=== PATIENT | male | born 1985 | race Caucasian/White ===

== ENCOUNTER 2018-09-26 18:14 | Emergency (ER) | payer OTHER, MEDICAID, SELFPAY ==
[2018-09-26 18:24] VITALS: BP 178/90; PULSE 105; RESP 16; TEMP 36.6; O2SAT 98
--- NOTE | 2018-09-26 18:24 | DI.RAD.S_ITS ---
PROCEDURE: XR CHEST 1V INDICATIONS: chest pain TECHNIQUE: One view of the chest was acquired. COMPARISON: None. FINDINGS: Surgical changes and devices: None. Lungs and pleura: There are low lung volumes. Lungs are clear. No pleural effusions or pneumothorax. Mediastinum: Mediastinal contours appear normal. Heart size is normal. Bones and chest wall: No suspicious bony lesions. There is a small round density projecting over the upper abdomen likely representing an external lead. IMPRESSION: 1. No acute cardiopulmonary disease. Dictated by: Aung Keith M.D. on 09/26/2018 at 18:59 Approved by: Aung Keith M.D. on 09/26/2018 at 19:00
--- NOTE | 2018-09-26 18:30 | ED.CHESTPAIN ---
HPI - Chest Pain General Chief Complaint: Chest Pain Stated Complaint: SOB, Chest Pressure/Tighness Time Seen by Provider: 09/26/18 18:30 Source: patient Mode of arrival: ambulatory Limitations: no limitations History of Present Illness HPI narrative: The patient was at rest at home earlier today. He developed an uncomfortable sensation in his substernal and left upper chest. There is no radiation of pain. He has mild dyspnea. He has no cough. He has no history of coronary disease, arrhythmia, or lung disease. He is a nonsmoker. He has no asthma history. He has not been ill recently. He was previously on medications for hypertension, but off those meds now. He has a history of diabetes. There is no family history of early heart disease. He denies associated headache, back pain, abdominal pain or nausea/vomiting. Related Data Home Medications Medication Instructions Recorded Confirmed paroxetine HCl [Paxil] mg PO #0 01/16/17 cyclobenzaprine 09/26/18 gabapentin 09/26/18 insulin glargine [Lantus Solostar 09/26/18 U-100 Insulin] liraglutide [Victoza 3-Abundio] 09/26/18 metformin 09/26/18 mupirocin 09/26/18 naproxen 09/26/18 pen needle, diabetic [BD 09/26/18 09/26/18 Ultra-Fine Micro Pen Needle] sertraline 09/26/18 Previous Rx's Medication Instructions Recorded oxycodone-acetaminophen [Percocet] 1 tab PO Q4HP PRN #10 tab 02/16/16 ranitidine HCl [Zantac] 150 mg PO BID #60 tab 09/26/18 Allergies Allergy/AdvReac Type Severity Reaction Status Date / Time No Known Drug Allergies Allergy Verified 09/26/18 18:24 Review of Systems Review of Systems ROS Unobtainable: All systems reviewed & are unremarkable except as noted in HPI and below Constitutional Denies chills, Denies fever(s), Denies lethargy and Denies weakness Eyes Comments: No eye complaints ENT Ears, Nose, Mouth, and Throat: Denies dizziness Comments: No ENT complaints. Cardiovascular Reports as per HPI, Denies chest pain, Reports chest pain at rest, Denies diaphoresis, Denies syncope, Denies rapid heart rate, Denies pedal edema and Reports dyspnea Respiratory Reports as per HPI, Denies cough, Reports dyspnea and Denies wheezing Gastrointestinal Gastrointestinal: Denies abdominal pain, Denies diarrhea, Denies nausea and Denies vomiting Musculoskeletal Denies back pain Integumentary/Breasts Denies erythema, Denies rash and Denies wounds Neurologic Denies confusion, Denies dizziness, Denies syncope and Denies weakness Psychiatric Denies anxiety, Denies confusion and Denies depression Allergic/Immunologic Denies wheezing [facility] Medical History (Updated 09/26/18 @ 20:06 by Rayo Proctor MD) History of diabetes mellitus (Acute) History of hypertension (Acute) Surgical History (Updated 09/26/18 @ 19:11 by Rayo Proctor MD) No pertinent past surgical history (Acute) Social History Smoking Status: Unknown if ever smoked Social History Smoking Status: Unknown if ever smoked Exam Initial Vital Signs Initial Vital Signs: Vital Signs Temperature 97.9 F 09/26/18 18:24 Pulse Rate 105 H 09/26/18 18:24 Respiratory Rate 16 09/26/18 18:24 Blood Pressure 178/90 H 09/26/18 18:24 Pulse Oximetry 98 09/26/18 18:24 Const General: cooperative and well developed Nutritional Appearance: well nourished Orientation: alert, awake, oriented x3 and not confused [facility] Head: normocephalic and atraumatic Face and sinus: face symmetric Mouth: moist mucous membranes Teeth and gingiva: dentition normal Throat: tonsils normal and uvula midline Eyes General: appearance normal, both eyes and all related structures Eyelids: eyelids normal Conjunctivae: conjunctivae normal Sclera: sclerae normal Pupils: PERRL EOM: EOM intact bilaterally Neck Neck: full ROM, No lymphadenopathy, No tender and No JVD Chest Chest: normal inspection of the chest, No crepitus and No tenderness Resp Effort & Inspection: normal respiratory effort, able to speak in complete sentences, no respiratory distress and no use of accessory muscles Auscultation: clear to auscultation bilaterally, no rales, no rhonchi and no wheezes Cardio Rate: regular rate Rhythm: regular rhythm Heart Sounds: S1 normal, S2 normal, no click, no gallops, no murmurs and no rubs Pulses: normal peripheral pulses GI Inspection: non-distended Palpation: soft, no hepatosplenomegaly, No pulsatile mass and tender (Epigastric tenderness with palpation.) Auscultation: normal bowel sounds Back/Spine/Pelvis Back: normal to inspection, No back tenderness and No CVA tenderness Skin General: no rashes or lesions noted and No jaundice Neuro General: alert, oriented x3, gait normal and no focal motor deficits Speech: speech normal Extrem General: full ROM, no pedal edema and no calf tenderness Psych Appearance: grossly normal and well kempt Course Course Narrative: Epigastric pain with his complaints of sternal chest discomfort are likely consistent with acid reflux. He was given Protonix here in the IV and discharged on Zantac. He is advised to follow up with his doctor to recheck after 1-2 weeks of meds. Orders Ordered: Discontinued Medications Al Hydrox/Mg Hydrox/Simethicone 20 ml/ Lidocaine HCl 15 ml 0 ml PO NOW ONE Stop: 09/26/18 18:38 Last Admin: 09/26/18 19:23 Dose: 35 ml Pantoprazole Sodium (Protonix) 40 mg IV NOW ONE Stop: 09/26/18 18:38 Last Admin: 09/26/18 19:23 Dose: 40 mg Vital Signs - 8 hr 09/26/18 18:24 09/26/18 19:12 Temperature 97.9 F Pulse Rate 105 H 103 H Respiratory Rate 16 22 Blood Pressure 178/90 H Blood Pressure [Right Arm] 139/32 L Pulse Oximetry 98 99 MDM - Chest Pain Lab Data Result diagrams: 09/26/18 18:36 09/26/18 18:36 Lab Results 09/26/18 09/26/18 09/26/18 Range/Units 18:36 18:36 18:36 WBC 9.3 (4.5-11.0) X10^3/uL RBC 5.42 (4.5-5.9) X10^6/uL Hgb 15.9 (13.5-17.5) g/dL Hct 46.3 (41-53) % MCV 85.5 (80-100) fL MCH 29.3 (26-34) PG MCHC 34.3 (30-36) % RDW 13.3 (11.6-14.8) % Plt Count 280 (150-400) X10^3/uL Neut % (Auto) 51.3 (50-75) % Lymph % (Auto) 34.3 (25-40) % Crowley % (Auto) 8.3 (3-14) % Eos % (Auto) 5.0 H (2-4) % Baso % (Auto) 1.1 (0-2) % Neut # (Auto) 4800 (7219-2092) /uL Lymph # (Auto) 3200 (5022-1958) /uL Crowley # (Auto) 800 (0-900) /uL Eos # (Auto) 500 H (0-450) /uL Baso # (Auto) 100 (0-100) /uL PT 10.1 (10.1-12.7) SECONDS INR 0.9 (0.9-1.3) APTT 32 (26.4-36.2) SECONDS Sodium 140 (137-145) mmol/L Potassium 3.9 (3.4-5.1) mmol/L Chloride 101 (98-107) mmol/L Carbon Dioxide 27 (22-32) mmol/L BUN 13 (9-20) mg/dL Creatinine 0.70 (0.66-1.25) mg/dL Estimated GFR > 60.0 (>60) mL/min BUN/Creatinine Ratio 18.6 (6-22) Glucose 170 H (70-100) mg/dL Calcium 9.2 (8.4-10.2) mg/dL Total Bilirubin 0.6 (0.2-1.3) mg/dL AST 30 (17-59) IU/L ALT 56 (21-72) IU/L Alkaline Phosphatase 57 (38-126) U/L Total Creatine Kinase 272 H (55-170) U/L CK-MB (CK-2) 3.14 H (<2.37) ng/mL CK-MB (CK-2) Rel Index 1.2 L (1.5-5.0) % Troponin I < 0.012 (0.01-0.034) ng/mL Total Protein 7.7 (6.3-8.2) g/dL Albumin 4.4 (3.5-5.0) g/dL Globulin 3.3 (1.7-4.1) g/dL Albumin/Globulin Ratio 1.3 (1.0-2.8) Lipase 248 (23-300) U/L Imaging Data Chest x-ray: Radiologist's impression: [address] [address] XRay Report Signed Patient: Juan Rashid Jr JMR#: [id number] : 1985Acct:[id number] Age/Sex: 33 / MDate of Service: 09/26/18 Loc: ED Accession Number: [id number] Procedure: XR chest 1V Ordering Provider: Rayo Proctor MD PROCEDURE: XR CHEST 1V INDICATIONS: chest pain TECHNIQUE: One view of the chest was acquired. COMPARISON: None. FINDINGS: Surgical changes and devices: None. Lungs and pleura: There are low lung volumes. Lungs are clear. No pleural effusions or pneumothorax. Mediastinum: Mediastinal contours appear normal. Heart size is normal. Bones and chest wall: No suspicious bony lesions. There is a small round density projecting over the upper abdomen likely representing an external lead. IMPRESSION: 1. No acute cardiopulmonary disease. Dictated by: Aung Keith M.D. on 09/26/2018 at 18:59 Approved by: Aung Keith M.D. on 09/26/2018 at 19:00 ECG Data Attestation: I personally reviewed and interpreted this ECG as follows: (Normal sinus rhythm rate 98 beats per minute. Normal intervals. No ectopy. No acute ST T wave changes. Normal study.) Discharge Plan Departure Patient Disposition: Home Clinical Impression: Abdominal pain, acute, epigastric Discharge Date/Time: 09/26/18 20:27 Interventions: ED Discharge Assessment Last Done: 09/26/18 20:27 Instructions: DI for Abdominal Pain-Adult Activity Restrictions/Additional Instructions: Zantac 2 times daily as prescribed. Continue her current medications as prescribed. Follow-up with her doctor in 1-2 weeks to recheck. Return here as needed. Prescriptions: New ranitidine HCl [Zantac] 150 mg tablet 150 mg PO BID Qty: 60 RF: 0 No Action oxycodone-acetaminophen [Percocet] 5 MG/325 MG tablet 1 tab PO Q4HP PRNQty: 10 RF: 0 paroxetine HCl [Paxil] 10 MG tablet PO Qty: 0 RF: 0 pen needle, diabetic [BD Ultra-Fine Micro Pen Needle] 32 gauge x 1/4 needle RF: 0 cyclobenzaprine 10 mg tablet RF: 0 gabapentin 300 mg capsule RF: 0 Lantus Solostar U-100 Insulin 100 unit/mL (3 mL) insulin pen RF: 0 sertraline 100 mg tablet RF: 0 naproxen 500 mg tablet RF: 0 metformin 500 mg tablet extended release 24 hr RF: 0 mupirocin 2 % ointment RF: 0 Victoza 3-Abundio 0.6 mg/0.1 mL (18 mg/3 mL) pen injector RF: 0 Referrals: Therese Castaneda ARNP [Primary Care Provider] -
[2018-09-26 19:05] LABS: Add Manual Diff / Slide Review NO; Basophils Absolute Auto 100 /uL (0-100); Basophils Percent Auto 1.1 % (0-2); Eosinophils Absolute Auto 500 /uL (0-450); Hematocrit 46.3 % (41-53); Hemoglobin 15.9 g/dL (13.5-17.5); Lymphocytes Absolute Auto 3200 /uL (1100-4500); Lymphocytes Percent Auto 34.3 % (25-40); Mean Corpuscular HGB Conc 34.3 % (30-36); Mean Corpuscular Hemoglobin 29.3 PG (26-34); Mean Corpuscular Volume 85.5 fL (80-100); Monocytes Absolute Auto 800 /uL (0-900); Monocytes Percent Auto 8.3 % (3-14); Neutrophils Absolute Auto 4800 /uL (1500-7000); Neutrophils Percent Auto 51.3 % (50-75); Platelet Count 280 X10^3/uL (150-400); Red Blood Cell Count 5.42 X10^6/uL (4.5-5.9); Red Cell Distribution Width 13.3 % (11.6-14.8); White Blood Cell Count 9.3 X10^3/uL (4.5-11.0)
[2018-09-26 19:12] VITALS: BP 139/32; PULSE 103; RESP 22; O2SAT 99
[2018-09-26 19:13] LABS: INR 0.9 (0.9-1.3); Prothrombin Time 10.1 SECONDS (10.1-12.7)
[2018-09-26 19:16] LABS: PTT Partial Thromboplastin Tim 32 SECONDS (26.4-36.2)
[2018-09-26 19:20] LABS: Alanine Aminotransferase 56 IU/L (21-72); Albumin 4.4 g/dL (3.5-5.0); Albumin Globulin Ratio 1.3 (1.0-2.8); Alkaline Phosphatase 57 U/L (38-126); Aspartate Aminotransferase 30 IU/L (17-59); BUN Creatinine Ratio 18.6 (6-22); Bilirubin Total 0.6 mg/dL (0.2-1.3); Blood Urea Nitrogen 13 mg/dL (9-20); Calcium 9.2 mg/dL (8.4-10.2); Carbon Dioxide 27 mmol/L (22-32); Chloride 101 mmol/L (98-107); Creatine Kinase 272 U/L (55-170); Estimated Glomerular Filt Rate > 60.0 mL/min (>60); Globulin 3.3 g/dL (1.7-4.1); Glucose 170 mg/dL (70-100); HEMOLYSIS 36 (0-50); Lipase 248 U/L (23-300); Potassium 3.9 mmol/L (3.4-5.1); Sodium 140 mmol/L (137-145); Total Protein 7.7 g/dL (6.3-8.2)
--- NOTE | 2018-09-26 19:22 | PC.NURSE ---
Pt reports feeling nausea this morning. Pt reports at 1300 today feeling SOB and tightness in chest, reports no pain, or vomiting, pt has some upper gastric pain when pushing on it.
[2018-09-26] MEDS: PANTOPRAZOLE 40 MG VIAL IV (19:23)
[2018-09-26] MEDS: MAG HYDROX/ALUMINUM/SIMETH SUS 20 ML, LIDOCAINE VISCOUS 2% 15 ML PO (19:23)
[2018-09-26 19:31] LABS: Troponin I < 0.012 ng/mL (0.01-0.034)
[2018-09-26 19:35] LABS: CKMB % Relative Index 1.2 % (1.5-5.0); Creatine Kinase MB 3.14 ng/mL (<2.37)
[2018-09-26 20:08] VITALS: BP 131/88; PULSE 88; RESP 20; O2SAT 98
== END 2018-09-26 20:27 | disposition home or self-care (01) ==
PROVIDERS: Emergency Provider Emergency Medicine; Family Provider Nurse Practitioner Gerontology; PCP Nurse Practitioner Gerontology
DX: R10.13 Epigastric pain (principal); R06.02 Shortness of breath
CPT/HCPCS: 36591; 71045; 80053; 82550; 82553; 83690; 84484; 85025; 85610; 85730; 93005; 93010; 96374; 99283; 99285; C9113

== ENCOUNTER → 2019-11-04 19:15 | Outpatient (CLI) | payer OTHER, MEDICAID, SELFPAY ==
--- NOTE | 2019-11-04 19:18 | DI.MRI.S_ITS ---
PROCEDURE: MR HAND RT WO CON INDICATIONS: TRAUMATIC RUPTURE OF RIGHT ULNAR COLLATERAL LIGAME TECHNIQUE: Noncontrast oblique coronal T1 spin echo and T2 fast spin echo with fat saturation, axial and sagittal T2 fast spin echo with fat saturation, through the thumb. COMPARISON: [facility], CR, XR FINGER(S) RIGHT, 08/29/2019, 15:47. [facility] [place], CR, XR FINGER(S) RIGHT, 10/08/2019, 13:42. FINDINGS: Image quality: Excellent. Bones: The bones are normally aligned, without marrow contusions or fractures. No intra-osseous lesions. First MCP sesamoids incidentally noted. First metacarpophalangeal joint: Radial collateral ligament appears intact. The distal ulnar collateral ligament is not well-seen and there is amorphous intermediate signal change in the expected location raising the possibility of sprain or rupture however this would be subacute versus chronic given the absence of adjacent soft tissue edema The aponeurosis of the adductor pollicis muscle appears normal. Thenar muscles: The superficial abductor pollicis longus muscle appears normal, with tendon inserting on the radial base of the first proximal phalanx. The opponens pollicis muscle also appears normal, inserting on the first metacarpal shaft. The flexor pollicis brevis muscle appears normal, with tendon inserting on the radial sesamoid and first proximal phalanx. The oblique and transverse heads of the adductor pollicis muscle appear normal, inserting on the ulnar sesamoid and proximal phalanx as part of the adductor aponeurosis. Flexor pollicis longus tendon: Tendon fibers appear intact, however there is fluid adjacent to the tendon in keeping with tenosynovitis at the level of the distal first metacarpal. The first annular marko at the level of the first MCP joint appears intact, intimate with the sesamoids. The second annular marko at the level of interphalangeal joint also appears intact. The oblique annular marko between the 1st and 2nd annular pulleys appears intact, with ulnar proximal attachment intimate with the adductor aponeurosis. The variable annular marko also appears intact between the first annular and oblique annular pulleys. Extensor tendons: The extensor pollicis longus and brevis tendons appear intact. The abductor pollicis longus tendon slips appear intact at the radial aspect of the proximal phalanx, proximal to the abductor pollicis brevis tendon insertion. There is mild fluid adjacent to the extensor digitorum longus and extensor carpi ulnaris longus and brevis tendons. Miscellaneous: 6 mm ganglion cyst seen adjacent to the ulnar aspect of the middle finger flexor tendon slips at the level of the metacarpal heads. IMPRESSION: Poorly visualized ulnar collateral ligament (distal segment) at the first MCP joint suggestive of the possibility of subacute or chronic sprain. Flexor pollicis longus, extensor carpi radialis longus and brevis, and extensor digitorum longus tenosynovitis 6 mm ganglion cyst adjacent to the ulnar aspect of the middle finger flexor tendons Dictated by: Robert Rizvi M.D. on 11/05/2019 at 11:29 Approved by: Robert Rizvi M.D. on 11/05/2019 at 11:49
== END ==
PROVIDERS: Family Provider Nurse Practitioner Gerontology; PCP Nurse Practitioner Gerontology; Referring Provider Orthopaedic Surgery; Visit Provider Orthopaedic Surgery
DX: S53.31XA Traumatic rupture of right ulnar collateral ligament, initial encounter (principal); M67.441 Ganglion, right hand; M65.841 Other synovitis and tenosynovitis, right hand; X58.XXXA Exposure to other specified factors, initial encounter
CPT/HCPCS: 73218

== ENCOUNTER → 2020-10-28 11:44 | Outpatient (CLI) | payer OTHER, MEDICAID, SELFPAY ==
[2020-10-28 13:37] LABS: Add Manual Diff / Slide Review NO; Basophils Absolute Auto 100 /uL (0-100); Basophils Percent Auto 1.1 % (0-2); Eosinophils Absolute Auto 300 /uL (0-450); Eosinophils Percent Auto 4.9 % (2-4); Hematocrit 44.6 % (41-53); Hemoglobin 15.7 g/dL (13.5-17.5); Lymphocytes Absolute Auto 1800 /uL (1100-4500); Mean Corpuscular HGB Conc 35.1 % (30-36); Mean Corpuscular Hemoglobin 30.2 PG (26-34); Mean Corpuscular Volume 85.9 fL (80-100); Monocytes Absolute Auto 500 /uL (0-900); Monocytes Percent Auto 7.6 % (3-14); Neutrophils Absolute Auto 4000 /uL (1500-7000); Neutrophils Percent Auto 59.4 % (50-75); Platelet Count 231 X10^3/uL (150-400); Red Blood Cell Count 5.19 X10^6/uL (4.5-5.9); Red Cell Distribution Width 13.3 % (11.6-14.8); White Blood Cell Count 6.7 X10^3/uL (4.5-11.0)
[2020-10-28 13:51] LABS: Hemoglobin A1C% w Est Avg Glu 9.3 % (4.0-6.0)
[2020-10-28 13:53] LABS: Alanine Aminotransferase 42 IU/L (<50); Albumin 4.2 g/dL (3.5-5.0); Albumin Globulin Ratio 1.3 (1.0-2.8); Alkaline Phosphatase 62 U/L (38-126); Aspartate Aminotransferase 33 IU/L (17-59); BUN Creatinine Ratio 32.1 (6-22); Blood Urea Nitrogen 17 mg/dL (9-20); Calcium 9.3 mg/dL (8.4-10.2); Carbon Dioxide 25 mmol/L (22-32); Chloride 104 mmol/L (98-107); Cholesterol 177 mg/dL (140-199); Estimated Glomerular Filt Rate > 60.0 mL/min (>60); Globulin 3.3 g/dL (1.7-4.1); Glucose 288 mg/dL (70-100); HDL Cholesterol 22 mg/dL (40-60); HEMOLYSIS 24 (0-50); Potassium 3.8 mmol/L (3.4-5.1); Sodium 136 mmol/L (137-145); Total Protein 7.5 g/dL (6.3-8.2); Triglycerides 445 mg/dL (35-150)
[2020-10-28 14:17] LABS: TSH w/ Reflex to FT4 0.82 uIU/mL (0.47-4.68)
[2020-10-28 14:35] LABS: Vitamin B12 588 pg/mL (239-931)
[2020-10-28 14:44] LABS: Creatinine Urine Random 219.2 mg/dL
[2020-10-28 15:00] LABS: Vitamin D 25 Hydroxy (D3) 19.1 ng/mL (30.0-100.0)
[2020-10-28 15:03] LABS: Microalbumi Creatinin Ratio Ur 112.2 ug/mg CR (<30); Microalbumin Urine Random 24.6 mg/dL (0-1.6)
== END ==
PROVIDERS: Family Provider Nurse Practitioner Gerontology; PCP Student in an Organized Health Care Education/Training Program; Referring Provider Student in an Organized Health Care Education/Training Program; Visit Provider Student in an Organized Health Care Education/Training Program
DX: E11.9 Type 2 diabetes mellitus without complications (principal); R45.86 Emotional lability; R46.89 Other symptoms and signs involving appearance and behavior; E55.9 Vitamin D deficiency, unspecified; Z13.220 Encounter for screening for lipoid disorders
CPT/HCPCS: 36415; 80053; 80061; 82043; 82306; 82570; 82607; 83036; 84443; 85025

== ENCOUNTER 2021-02-09 13:48 | Emergency (ER) | payer OTHER, MEDICAID, SELFPAY ==
[2021-02-09] VITALS (11 sets, daily range): BP systolic 127–149; BP diastolic 59–74; PULSE 59–93; RESP 14–38; TEMP 36.9; O2SAT 96–98; BMI 42.0
--- NOTE | 2021-02-09 14:02 | DI.CT.S_ITS ---
PROCEDURE: CT HEAD/BRAIN WO CON INDICATIONS: seizure TECHNIQUE: Noncontrast 4.5 mm thick angled axial sections acquired from the foramen magnum to the vertex, with coronal and sagittal reformats. For radiation dose reduction, the following was used: automated exposure control, adjustment of mA and/or kV according to patient size. COMPARISON: [facility], CT, HEAD WITHOUT CONTRAST, 01/16/2017, 20:56. FINDINGS: Image quality: Mild streak artifact can be seen through the skull base. CSF spaces: Basal cisterns are patent. No extra-axial fluid collections. Ventricles are normal in size and shape. Brain: No midline shift. No intracranial masses or hemorrhage. Toth-white matter interface is normal. Skull and face: Calvarium and visualized facial bones are intact, without suspicious lesions. Sinuses: Visualized sinuses and mastoids are clear. IMPRESSION: A seizure focus is not identified on this study. No acute intracranial hemorrhage is seen. Dictated by: Raji Nolan M.D. on 02/09/2021 at 13:16 Approved by: Raji Nolan M.D. on 02/09/2021 at 13:17
--- NOTE | 2021-02-09 14:05 | ED_ITS ---
HPI - Seizure General Chief Complaint: Seizure Stated Complaint: seizure, passed out Time Seen by Provider: 02/09/21 14:01 Source: patient Mode of arrival: Wheelchair Limitations: no limitations History of Present Illness HPI Narrative: Patient is a 36-year-old male history of diabetes, OCD ADHD bipolar presenting today with possible seizure. He states he was in the closet when he suddenly was on the floor he did hit his head. states that he shook all over no urinary incontinence. He did not bite his tongue. He is having some right-sided numbness but still able to move breathe. No nausea or vomiting. He has no chest pain. He states he did have another seizure about 1 year ago but was never checked out for. He does not have actual diagnosis of a seizure disorder. Related Data Home Medications Medication Instructions Recorded Confirmed aspirin 81 mg tablet,delayed 81 mg PO DAILY 01/03/21 01/03/21 release (Adult Low Dose Aspirin) Previous Rx's Medication Instructions Recorded lisinopril 5 mg tablet 5 mg PO DAILY #90 tab 10/29/20 glipizide 5 mg tablet, extended 5 mg PO DAILY #90 tab 12/21/20 release 24 hr pioglitazone 15 mg tablet 15 mg PO DAILY #90 tab 12/21/20 pravastatin 20 mg tablet 20 mg PO BEDTIME #30 tab 01/03/21 fluoxetine 20 mg tablet 20 mg PO DAILY #90 tab 01/31/21 Allergies Allergy/AdvReac Type Severity Reaction Status Date / Time No Known Drug Allergies Allergy Verified 02/09/21 13:56 Review of Systems Review of Systems Narrative: GENERAL: Denies chills, fatigue, malaise, fever, sweats, travel HEENT: Denies sinus pain, ear pain, sore throat, difficulty swallowing, neck pain RESPIRATORY: Denies dyspnea, cough, wheezing, hemoptysis, sputum. CARDIOVASCULAR: Denies chest pain, palpitations, orthopnea, edema GASTROINTESTINAL: Denies nausea, vomiting, abdominal pain, diarrhea, constipation, melena. : Denies dysuria, frequency, incontinence, hematuria, urinary retention, flank pain. MUSCULOSKELETAL: Denies weakness, joint pain, or bony pain SKIN: + picking of skin secondary to OCD mostly on legs No rash, no erythema, no pruritus NEUROLOGIC: See HPI PSYCHIATRIC: No concerning psychosocial issues. 12 point review of systems is negative except for those stated above and HPI Patient History Medical History (Updated 10/06/21 @ 16:24 by Jeanne Hunt DO) Helicobacter positive gastritis RYAN on CPAP Type 2 diabetes mellitus with albuminuria Surgical History (Updated 09/26/18 @ 19:11 by Rayo Proctor MD) No pertinent past surgical history Family History (Updated 12/07/20 @ 22:27 by Licha Leavitt) Father Diabetes mellitus Grandfather Cancer Grandfather Fall Grandmother Cancer Social History Smoking Status: Unknown if ever smoked Smoking Status: Unknown if ever smoked alcohol intake frequency: holidays/special occasions only Substance Use Type: marijuana Exam Initial Vital Signs Initial Vital Signs: Vital Signs Pulse Rate 78 02/09/21 13:54 Blood Pressure 149/70 H 02/09/21 13:54 Pulse Oximetry 98 02/09/21 13:54 GENERAL: Alert well-appearing 36-year-old male HEENT: Head atraumatic,EOMI, pupils reactive, face symmetric, moist mucous membranes CARDIOVASCULAR: Regular rate and rhythm without murmurs, rubs or gallops. RESPIRATORY: Breath sounds equal bilaterally, no wheezes rales or rhonchi. ABDOMEN: Soft, nontender. Normoactive bowel sounds all 4 quadrants. No guarding or rebound. EXTREMITIES: Normal range of motion, no clubbing or edema. Neurovascularly intact NEUROLOGICAL: Alert and oriented x4.Normal gait and speech. Cranial nerves II through XII grossly intact. Good efqxcn-dy-whvk, good eeao-fe-vbat, strength equal bilaterally, no dysarthria or aphasia, sensation in tact to soft touch bilaterally, no visual changes, no facial droop. Right leg is slightly weaker but still able to do heel to chu it shakes a little bit while raising it but does not necessarily drift. Obviously stronger in the left SKIN: Warm, dry, no laceration, no petechiae, no rashes or lesions. Scores NIH Stroke Scale Level of Conciousness: Alert, keenly responsive Ask month/age: Answers both questions correctly. Open/close eyes, close hand: Performs both tasks correctly Best gaze horizontal: Normal Visual bradley: No visual loss Facial palsy: Normal symetrical movement Left arm drift: No drift for full 10 sec Right arm drift: No drift for full 10 sec Left leg drift: No drift for full 5 sec Right leg drift: Drifts down, not to bed Limb ataxia: Absent Sensory on face/arms/legs: Normal, no sensory loss Best language: No aphasia, normal Dysarthria: Normal Extinction or inattention: No abnormality Total NIH Stroke scale score: 1 Course Orders Ordered: ED Orders 02/09/21 14:02 CT head/brain wo con Stat EKG-12 Lead Stat 02/09/21 14:18 Complete Blood Count AUTO DIFF Stat Comprehensive Metabolic Panel Stat Ethanol (ETOH) Stat Magnesium Stat Prolactin Stat Troponin & CK Cardiac Panel Stat 02/09/21 14:39 CT angio head and neck Stat 02/09/21 15:49 Urinalysis Screen (Dip Only) Stat Urine Drug Screen, Rapid Stat Vital Signs Vital signs: Vital Signs - 8 hr 02/09/21 13:54 02/09/21 13:56 02/09/21 14:00 Temperature 98.4 F Pulse Rate 78 83 93 H Respiratory Rate 14 Blood Pressure 149/70 H 149/70 H 146/74 H Pulse Oximetry 98 97 98 02/09/21 14:14 02/09/21 14:30 02/09/21 14:31 Temperature Pulse Rate 72 75 68 Respiratory Rate 18 25 H 31 H Blood Pressure 132/62 127/74 Pulse Oximetry 97 97 96 02/09/21 15:00 02/09/21 15:30 02/09/21 15:31 Temperature Pulse Rate 80 60 59 L Respiratory Rate 31 H 35 H 38 H Blood Pressure 142/67 H 132/67 Pulse Oximetry 96 96 96 02/09/21 15:41 02/09/21 16:37 Temperature Pulse Rate 67 65 Respiratory Rate 32 H 20 Blood Pressure 132/59 L 129/71 Pulse Oximetry 97 97 MDM - Seizure Lab Data Result diagrams: 02/09/21 14:18 02/09/21 14:18 Labs: Lab Results 02/09/21 02/09/21 02/09/21 Range/Units 14:18 14:18 14:18 WBC 6.7 (4.5-11.0) X10^3/uL RBC 4.91 (4.5-5.9) X10^6/uL Hgb 14.5 (13.5-17.5) g/dL Hct 42.0 (41-53) % MCV 85.6 (80-100) fL MCH 29.5 (26-34) PG MCHC 34.5 (30-36) % RDW 13.0 (11.6-14.8) % Plt Count 219 (150-400) X10^3/uL Neut % (Auto) 59.9 (50-75) % Lymph % (Auto) 26.7 (25-40) % Callahan % (Auto) 8.5 (3-14) % Eos % (Auto) 3.8 (2-4) % Baso % (Auto) 1.1 (0-2) % Neut # (Auto) 4000 (0029-7309) /uL Lymph # (Auto) 1800 (8136-4056) /uL [place]ahan # (Auto) 600 (0-900) /uL Eos # (Auto) 300 (0-450) /uL Baso # (Auto) 100 (0-100) /uL Sodium 135 L (137-145) mmol/L Potassium 4.0 (3.4-5.1) mmol/L Chloride 101 (98-107) mmol/L Carbon Dioxide 29 (22-32) mmol/L BUN 15 (9-20) mg/dL Creatinine 0.63 L (0.66-1.25) mg/dL Estimated GFR > 60.0 (>60) mL/min BUN/Creatinine Ratio 23.8 H (6-22) Glucose 225 H (70-100) mg/dL Calcium 9.1 (8.4-10.2) mg/dL Magnesium 1.6 (1.6-2.3) mg/dL Total Bilirubin 0.7 (0.2-1.3) mg/dL AST 32 (17-59) IU/L ALT 40 (<50) IU/L Alkaline Phosphatase 59 (38-126) U/L Total Creatine Kinase 413 H (55-170) U/L CK-MB (CK-2) 4.84 H (<2.37) ng/mL CK-MB (CK-2) Rel Index 1.2 L (1.5-5.0) % Troponin I < 0.012 (0.01-0.034) ng/mL Total Protein 6.9 (6.3-8.2) g/dL Albumin 4.1 (3.5-5.0) g/dL Globulin 2.8 (1.7-4.1) g/dL Albumin/Globulin Ratio 1.5 (1.0-2.8) Prolactin 12.9 (3.7-17.9) ng/mL Urine Color Urine Appearance Urine pH (4.5-8.0) Ur Specific Theodore (1.000-1.035) Urine Protein (Negative) Urine Glucose (UA) (Negative) g/dL Urine Ketones (NEGATIVE) Urine Occult Blood (Negative) Urine Nitrate (Negative) Urine Bilirubin (NEGATIVE) Urine Urobilinogen (0.2) E.U./dL Ur Leukocyte Esterase (NEGATIVE) U Opiates 300ng/mL cut (Negative) Ur Oxycodone Screen (Negative) Urine Methadone Screen (Negative) Ur Barbiturates Screen (Negative) U Tricyclic Antidepress (Negative) Ur Phencyclidine Scrn (Negative) Ur Amphetamines Screen (Negative) U Methamphetamines Scrn (Negative) Ur MDMA Scrn (Ecstasy) (Negative) U Benzodiazepines Scrn (Negative) Urine Cocaine Screen (Negative) U Marijuana (THC) Screen (Negative) Ethyl Alcohol < 10 ( - 10) mg/dL 02/09/21 02/09/21 Range/Units 15:49 15:49 WBC (4.5-11.0) X10^3/uL RBC (4.5-5.9) X10^6/uL Hgb (13.5-17.5) g/dL Hct (41-53) % MCV (80-100) fL MCH (26-34) PG MCHC (30-36) % RDW (11.6-14.8) % Plt Count (150-400) X10^3/uL Neut % (Auto) (50-75) % Lymph % (Auto) (25-40) % Callahan % (Auto) (3-14) % Eos % (Auto) (2-4) % Baso % (Auto) (0-2) % Neut # (Auto) (1459-9977) /uL Lymph # (Auto) (4651-5084) /uL Callahan # (Auto) (0-900) /uL Eos # (Auto) (0-450) /uL Baso # (Auto) (0-100) /uL Sodium (137-145) mmol/L Potassium (3.4-5.1) mmol/L Chloride (98-107) mmol/L Carbon Dioxide (22-32) mmol/L BUN (9-20) mg/dL Creatinine (0.66-1.25) mg/dL Estimated GFR (>60) mL/min BUN/Creatinine Ratio (6-22) Glucose (70-100) mg/dL Calcium (8.4-10.2) mg/dL Magnesium (1.6-2.3) mg/dL Total Bilirubin (0.2-1.3) mg/dL AST (17-59) IU/L ALT (<50) IU/L Alkaline Phosphatase (38-126) U/L Total Creatine Kinase (55-170) U/L CK-MB (CK-2) (<2.37) ng/mL CK-MB (CK-2) Rel Index (1.5-5.0) % Troponin I (0.01-0.034) ng/mL Total Protein (6.3-8.2) g/dL Albumin (3.5-5.0) g/dL Globulin (1.7-4.1) g/dL Albumin/Globulin Ratio (1.0-2.8) Prolactin (3.7-17.9) ng/mL Urine Color Yellow Urine Appearance Clear Urine pH 6.5 (4.5-8.0) Ur Specific Theodore 1.010 (1.000-1.035) Urine Protein Negative (Negative) Urine Glucose (UA) 1+ H (Negative) g/dL Urine Ketones Negative (NEGATIVE) Urine Occult Blood Negative (Negative) Urine Nitrate Negative (Negative) Urine Bilirubin Negative (NEGATIVE) Urine Urobilinogen 1.0 (0.2) E.U./dL Ur Leukocyte Esterase Negative (NEGATIVE) U Opiates 300ng/mL cut Negative (Negative) Ur Oxycodone Screen Negative (Negative) Urine Methadone Screen Negative (Negative) Ur Barbiturates Screen Negative (Negative) U Tricyclic Antidepress Negative (Negative) Ur Phencyclidine Scrn Negative (Negative) Ur Amphetamines Screen Negative (Negative) U Methamphetamines Scrn Negative (Negative) Ur MDMA Scrn (Ecstasy) Negative (Negative) U Benzodiazepines Scrn Negative (Negative) Urine Cocaine Screen Negative (Negative) U Marijuana (THC) Screen Positive H (Negative) Ethyl Alcohol ( - 10) mg/dL Point of Care Testing Glucose POC 232 Urine Dip Bedside Urine Glucose 250 mg/dl Bedside Urine Bilirubin - Negative Bedside Urine Ketone - Negative Urine Specific Theodore 1.015 Bedside Urine Occult Blood - Negative Bedside Urine pH 6.0 Bedside Urine Protein - Negative Bedside Urine Urobilinogen - Negative Bedside Urine Nitrite - Negative Bedside Urine Leukocytes - Negative Esterase Imaging Data CT scan - head: Radiologist's Impression: PROCEDURE:? CT HEAD/BRAIN WO CON ? INDICATIONS:? seizure ? TECHNIQUE:? Noncontrast 4.5 mm thick angled axial sections acquired from the foramen magnum to the vertex, with coronal and sagittal reformats.? For radiation dose reduction, the following was used:? automated exposure control, adjustment of mA and/or kV according to patient size.? ? COMPARISON:? [facility], CT, HEAD WITHOUT CONTRAST, 01/16/2017, 20:56. ? FINDINGS:? Image quality:? Mild streak artifact can be seen through the skull base. ? CSF spaces:? Basal cisterns are patent.? No extra-axial fluid collections.? Ventricles are normal in size and shape.? ? Brain:? No midline shift.? No intracranial masses or hemorrhage.? Toth-white matter interface is normal.? ? Skull and face:? Calvarium and visualized facial bones are intact, without suspicious lesions.? ? Sinuses:? Visualized sinuses and mastoids are clear.? ? ? IMPRESSION:? A seizure focus is not identified on this study. ? No acute intracranial hemorrhage is seen.? ? ? Dictated by: Raji Nolan M.D. on 02/09/2021 at 13:16 ? ? Approved by: Raji Nolan M.D. on 02/09/2021 at 13:17 ? CTA - brain/neck: Radiologist's Impression: PROCEDURE:? CT ANGIO HEAD AND NECK ? INDICATIONS:? right leg weakness post seizure ? TECHNIQUE:? Pre-contrast 4.5 mm thick sections acquired from the foramen magnum to the vertex.? After the administration of intravenous contrast, 1 mm thick sections acquired from the aortic arch through the [place] of [place].? Post-contrast 4.5 mm thick sections then re- acquired from the foramen magnum to the vertex.? 3-dimensional bppypgq-juuwduabn-zktcxyvirf (MIP) and/or volume rendering reformats were acquired of the central intracranial vasculature and neck separately. ? COMPARISON:? None. ? FINDINGS:? Image quality:? Excellent.? ? BRAIN:? CSF spaces:? Ventricles are normal in size and shape.? Basal cisterns are patent.? No extra-axial fluid collections.? ? Brain:? No midline shift.? No intracranial bleeds or masses.? Toth-white matter interface appears intact.? ? Skull and face:? Calvarium and facial bones appear intact, without suspicious lesions.? Orbits appear normal.? ? Sinuses:? Sinuses and mastoids are clear.? ? HEAD CT ANGIOGRAPHY:? Anterior circulation:? Intracranial internal carotid arteries are normal in size and flow.? The flow within the paired anterior cerebral arteries is normal and symmetric.? The flow within the middle cerebral arteries is normal and symmetric.? The anterior communicating artery is seen.? No aneurysms are seen.? ? Posterior circulation:? Visualized portions of the vertebral arteries demonstrate normal caliber, and join to form a normal appearing basilar artery.? Flow within the posterior cerebral arteries is normal and symmetric.? No aneurysms are seen.? ? NECK CT ANGIOGRAPHY:? Carotid system:? The great vessels demonstrate a conventional anatomy as they arise from the aortic arch.? The origins of the common carotid arteries appear patent.? The common carotid arteries demonstrate normal caliber and courses.? The bifurcation pat ons are both widely patent.? The internal carotid arteries demonstrate normal calibers and courses.? ? Posterior circulation:? The origins of the vertebral arteries both appear widely patent.? The more superior extracranial portions of both vertebral arteries also demonstrate normal courses and calibers.? They join to form a normal appearing basilar artery.? ? Soft tissues:? Visualized neck soft tissues demonstrate no suspicious abnormalities.? ? Bones:? No suspicious bony lesions.? Visualized cervical spine appears normally aligned.? IMPRESSION:? 1. No acute intracranial abnormality. 2. Normal CTA head. 3. Normal CTA neck.? ? Any quantitative measurements of stenosis were performed using NASCET criteria.? ? ? Dictated by: Tommy Renteria M.D. on 02/09/2021 at 15:09 ? ? ECG Data Interpretation: Normal sinus rhythm rate 61 WI interval [address] changes no T-wave inversion MDM Narrative Medical decision making narrative: I did discuss case with it sounds as though he had seizure-like activity in all extremities eyes rolled in the back of his head it lasted briefly for about a minute. He was extremely confused afterward consistent with postictal. . He did have some definite right leg drifting and weakness which has resolved. 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 The patient is at baseline. Prolactin is not elevated however based on history still feel like this may be seizure related. He is under significant amount of stress at home with his grandfather actively dying. 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 Please do not drive until evaluation by Neurology. I think that he had some weakness on the right side secondary to complication from the seizure. Seizure may be related to stress I am so sorry to her about your grandfather's status, I think it may be related to your seizure today. I do recommend trying meditation apps to see if helps dealing with stress. Other things include yoga stretching and acupuncture *Continue to take medications as directed *Follow up with your primary care provider in 2-3 days *Return to ER if you should have a repeat seizure, increasing weakness, diffic ulty speaking, facial droop, difficulty walking or any new, worsening or concerning symptoms Prescriptions: No Action pioglitazone 15 mg tablet 15 mg PO DAILY Qty: 90 RF: 0 glipizide 5 mg tablet extended release 24hr 5 mg PO DAILY Qty: 90 RF: 0 fluoxetine 20 mg tablet 20 mg PO DAILY Qty: 90 RF: 1 lisinopril 5 mg tablet 5 mg PO DAILY Qty: 90 RF: 3 pravastatin 20 mg tablet 20 mg PO BEDTIME Qty: 30 RF: 0 aspirin [Adult Low Dose Aspirin] 81 mg tablet,delayed release (DR/EC) 81 mg PO DAILY RF: 0 Referrals: Wilberto Mcgee MD [Primary Care Provider] - Stand Alone Forms: Work Release Note
[2021-02-09 14:26] LABS: Add Manual Diff / Slide Review NO; Basophils Absolute Auto 100 /uL (0-100); Basophils Percent Auto 1.1 % (0-2); Eosinophils Absolute Auto 300 /uL (0-450); Eosinophils Percent Auto 3.8 % (2-4); Hemoglobin 14.5 g/dL (13.5-17.5); Lymphocytes Absolute Auto 1800 /uL (1100-4500); Lymphocytes Percent Auto 26.7 % (25-40); Mean Corpuscular HGB Conc 34.5 % (30-36); Mean Corpuscular Hemoglobin 29.5 PG (26-34); Mean Corpuscular Volume 85.6 fL (80-100); Monocytes Absolute Auto 600 /uL (0-900); Monocytes Percent Auto 8.5 % (3-14); Neutrophils Absolute Auto 4000 /uL (1500-7000); Neutrophils Percent Auto 59.9 % (50-75); Platelet Count 219 X10^3/uL (150-400); Red Blood Cell Count 4.91 X10^6/uL (4.5-5.9); White Blood Cell Count 6.7 X10^3/uL (4.5-11.0)
--- NOTE | 2021-02-09 14:39 | DI.CT.S_ITS ---
PROCEDURE: CT ANGIO HEAD AND NECK INDICATIONS: right leg weakness post seizure TECHNIQUE: Pre-contrast 4.5 mm thick sections acquired from the foramen magnum to the vertex. After the administration of intravenous contrast, 1 mm thick sections acquired from the aortic arch through the [place] of [place]. Post-contrast 4.5 mm thick sections then re-acquired from the foramen magnum to the vertex. 3-dimensional qjeydnl-flnkwvscb-ezayytcydb (MIP) and/or volume rendering reformats were acquired of the central intracranial vasculature and neck separately. COMPARISON: None. FINDINGS: Image quality: Excellent. BRAIN: CSF spaces: Ventricles are normal in size and shape. Basal cisterns are patent. No extra-axial fluid collections. Brain: No midline shift. No intracranial bleeds or masses. Toth-white matter interface appears intact. Skull and face: Calvarium and facial bones appear intact, without suspicious lesions. Orbits appear normal. Sinuses: Sinuses and mastoids are clear. HEAD CT ANGIOGRAPHY: Anterior circulation: Intracranial internal carotid arteries are normal in size and flow. The flow within the paired anterior cerebral arteries is normal and symmetric. The flow within the middle cerebral arteries is normal and symmetric. The anterior communicating artery is seen. No aneurysms are seen. Posterior circulation: Visualized portions of the vertebral arteries demonstrate normal caliber, and join to form a normal appearing basilar artery. Flow within the posterior cerebral arteries is normal and symmetric. No aneurysms are seen. NECK CT ANGIOGRAPHY: Carotid system: The great vessels demonstrate a conventional anatomy as they arise from the aortic arch. The origins of the common carotid arteries appear patent. The common carotid arteries demonstrate normal caliber and courses. The bifurcation regions are both widely patent. The internal carotid arteries demonstrate normal calibers and courses. Posterior circulation: The origins of the vertebral arteries both appear widely patent. The more superior extracranial portions of both vertebral arteries also demonstrate normal courses and calibers. They join to form a normal appearing basilar artery. Soft tissues: Visualized neck soft tissues demonstrate no suspicious abnormalities. Bones: No suspicious bony lesions. Visualized cervical spine appears normally aligned. IMPRESSION: 1. No acute intracranial abnormality. 2. Normal CTA head. 3. Normal CTA neck. Any quantitative measurements of stenosis were performed using NASCET criteria. Dictated by: Tommy Renteria M.D. on 02/09/2021 at 15:09 Approved by: Tommy Renteria M.D. on 02/09/2021 at 15:15
[2021-02-09 14:40] LABS: Alanine Aminotransferase 40 IU/L (<50); Albumin 4.1 g/dL (3.5-5.0); Albumin Globulin Ratio 1.5 (1.0-2.8); Alkaline Phosphatase 59 U/L (38-126); Aspartate Aminotransferase 32 IU/L (17-59); BUN Creatinine Ratio 23.8 (6-22); Bilirubin Total 0.7 mg/dL (0.2-1.3); Blood Urea Nitrogen 15 mg/dL (9-20); Calcium 9.1 mg/dL (8.4-10.2); Carbon Dioxide 29 mmol/L (22-32); Chloride 101 mmol/L (98-107); Creatine Kinase 413 U/L (55-170); Estimated Glomerular Filt Rate > 60.0 mL/min (>60); Ethanol (ETOH) < 10 mg/dL; Globulin 2.8 g/dL (1.7-4.1); Glucose 225 mg/dL (70-100); HEMOLYSIS < 15 (0-50); Sodium 135 mmol/L (137-145); Total Protein 6.9 g/dL (6.3-8.2)
[2021-02-09 14:51] LABS: Troponin I < 0.012 ng/mL (0.01-0.034)
[2021-02-09 14:55] LABS: CKMB % Relative Index 1.2 % (1.5-5.0); Creatine Kinase MB 4.84 ng/mL (<2.37); Magnesium 1.6 mg/dL (1.6-2.3)
[2021-02-09 15:12] LABS: Prolactin 12.9 ng/mL (3.7-17.9)
[2021-02-09 16:09] LABS: Appearance Urine UA CLEAR; Bilirubin Urine UA NEGATIVE (NEGATIVE); Color Urine UA YELLOW; Glucose Urine UA 1+ g/dL (Negative); Ketones Urine UA NEGATIVE (NEGATIVE); Leukocyte Esterase Urine UA NEGATIVE (NEGATIVE); Nitrite Urine UA NEGATIVE (Negative); Occult Blood Urine UA NEGATIVE (Negative); Protein Urine UA NEGATIVE (Negative); pH Urine UA 6.5 (4.5-8.0)
[2021-02-09 16:15] LABS: UR Morphine/Opiate cutoff 300 Negative (Negative); Ur Creatinine Normal (Normal); Ur Specific Gravity Normal (Normal); Urine Amphetamines Negative (Negative); Urine Barbiturates Negative (Negative); Urine Benzodiazepines Negative (Negative); Urine Cocaine Negative (Negative); Urine MDMA Negative (Negative); Urine Methadone Negative (Negative); Urine Methamphetamines Negative (Negative); Urine Oxycodone Negative (Negative); Urine Phencyclidine Negative (Negative); Urine Tetrahydrocannabinol Positive (Negative); Urine Tricyclic Antidepressant Negative (Negative); Urine pH Normal (Normal)
[2021-02-10 07:27] LABS: Hemoglobin A1C% w Est Avg Glu 8.3 % (4.0-6.0)
== END 2021-02-09 16:41 | disposition home or self-care (01) ==
PROVIDERS: Emergency Provider Emergency Medicine; Family Provider Nurse Practitioner Gerontology; PCP Student in an Organized Health Care Education/Training Program
DX: R56.9 Unspecified convulsions (principal); G83.84 Todd's paralysis (postepileptic); S09.90XA Unspecified injury of head, initial encounter; R20.0 Anesthesia of skin; E11.29 Type 2 diabetes mellitus with other diabetic kidney complication; R80.9 Proteinuria, unspecified
CPT/HCPCS: 36415; 70450; 70496; 70498; 80053; 80305; 80320; 81003; 82550; 82553; 82962; 83036; 83735; 84146; 84484; 85025; 93005; 99284

== ENCOUNTER → 2021-02-11 10:48 | Outpatient (CLI) | payer OTHER, MEDICAID, SELFPAY ==
[2021-02-11 11:51] LABS: Hemoglobin A1C% w Est Avg Glu 8.2 % (4.0-6.0)
[2021-02-11 12:00] LABS: Cholesterol 192 mg/dL (140-199); HDL Cholesterol 27 mg/dL (40-60); LDL Cholesterol Calculated 131 mg/dL (<100); Triglycerides 168 mg/dL (35-150)
[2021-02-11 13:52] LABS: Creatinine Urine Random 246.5 mg/dL
[2021-02-11 13:57] LABS: Microalbumi Creatinin Ratio Ur 29.2 ug/mg CR (<30); Microalbumin Urine Random 7.2 mg/dL (0-1.6)
== END ==
PROVIDERS: Family Provider Nurse Practitioner Gerontology; PCP Student in an Organized Health Care Education/Training Program; Referring Provider Student in an Organized Health Care Education/Training Program; Visit Provider Student in an Organized Health Care Education/Training Program
DX: E11.29 Type 2 diabetes mellitus with other diabetic kidney complication (principal); R80.9 Proteinuria, unspecified; E78.5 Hyperlipidemia, unspecified; E11.69 Type 2 diabetes mellitus with other specified complication
CPT/HCPCS: 36415; 80061; 82043; 82570; 83036

== ENCOUNTER → 2021-03-03 11:11 | Outpatient (CLI) | payer OTHER, MEDICAID, SELFPAY ==
--- NOTE | 2021-03-03 11:11 | DI.MRI.S_ITS ---
PROCEDURE: MR HEAD/BRAIN WO CON INDICATIONS: New seizure TECHNIQUE: Noncontrast axial T1 spin echo, axial T2 fast spin echo, sagittal and axial FLAIR, coronal T2 fast spin echo, axial gradient echo, axial diffusion and ADC through the brain. In this patient, dedicated thin-section coronal T2 weighted images were performed through the hippocampi. No IV contrast was ordered and no contrast was given. COMPARISON: [facility], CT, CT ANGIO HEAD AND NECK, 02/09/2021, 14:48. [facility], CT, CT HEAD/BRAIN WO CON, 02/09/2021, 14:07. FINDINGS: Image quality: Excellent. CSF Spaces: Basal cisterns are patent. No extra-axial fluid collections. Ventricles are normal in size and shape. Brain: No intracranial masses or hemorrhage. Toth/white matter interface is normal. Brainstem appears normal. Diffusion-weighted images demonstrate no acute ischemic insult. No chronic ischemic insults. Normal intravascular flow voids are present. In this patient with this given history, scrutiny is given to the hippocampi. The hippocampal regions demonstrate a normal, symmetric appearance. Skull and face: Calvarium has normal marrow signal. Orbits appear normal. Sinuses: Sinuses and mastoids are clear. IMPRESSION: Normal brain MRI, without a cause of seizures identified. The hippocampi demonstrate a normal, symmetric appearance. No masses can be seen. No findings of acute or subacute infarction can be seen. Dictated by: Raji Nolan M.D. on 03/03/2021 at 11:29 Approved by: Raji Nolan M.D. on 03/03/2021 at 11:32
== END ==
PROVIDERS: Family Provider Nurse Practitioner Gerontology; PCP Student in an Organized Health Care Education/Training Program; Referring Provider Student in an Organized Health Care Education/Training Program; Visit Provider Student in an Organized Health Care Education/Training Program
DX: R56.9 Unspecified convulsions (principal)
CPT/HCPCS: 70551

== ENCOUNTER → 2021-05-19 11:51 | Outpatient (CLI) | payer OTHER, MEDICAID, SELFPAY ==
[2021-05-19 13:18] LABS: COVID19 -Nasal RAPID Negative (Negative)
== END ==
PROVIDERS: Family Provider Nurse Practitioner Gerontology; PCP Student in an Organized Health Care Education/Training Program; Referring Provider Nurse Practitioner Family; Visit Provider Nurse Practitioner Family
DX: Z20.822 Contact with and (suspected) exposure to COVID-19 (principal); R50.9 Fever, unspecified
CPT/HCPCS: 87635